=== PATIENT | female | born 1980 | race Caucasian/White ===

== ENCOUNTER 2024-07-01 11:48 | Emergency (ER) | payer OTHER ==
[2024-07-01 12:03] VITALS: BP 115/82; PULSE 82; RESP 16; TEMP 98.9; BMI 28.3
[2024-07-01] MEDS ORDERED: METOCLOPRAMIDE HCL INJECTION 10 MG/2 ML VIAL ONE (13:21)
[2024-07-01] MEDS ORDERED: ACETAMINOPHEN 500 MG TABLET (FP) ONE (13:21)
[2024-07-01] MEDS: ACETAMINOPHEN 500 MG TABLET (FP) PO ONE (13:26)
[2024-07-01] MEDS: METOCLOPRAMIDE HCL INJECTION 10 MG/2 ML VIAL IVPUSH ONE (13:39)
[2024-07-01] MEDS: METOCLOPRAMIDE HCL 10 MG TABLET (FP) PO ONE (13:41)
== END 2024-07-01 15:15 | disposition home or self-care (01) ==
LOC: JER 11:48
PROC: 3E033GC Introduction of Other Therapeutic Substance into Peripheral Vein, Percutaneous Approach (ICD-10-PCS; principal; 2024-07-01)
DX: R51.9 Headache, unspecified (principal); R94.31 Abnormal electrocardiogram [ECG] [EKG]
CPT/HCPCS: 93005; 93010; 99284-25